=== PATIENT | female | born 1965 | race Caucasian/White ===

== ENCOUNTER 2018-10-12 09:18 | Observation (INO) | payer BC, SELFPAY ==
[2018-10-12] VITALS (15 sets, daily range): BP systolic 94–118; BP diastolic 58–72; PULSE 60–84; RESP 16–18; TEMP 36.6–37.4; O2SAT 93–99; BMI 26.5; BMI 27.3
--- NOTE | 2018-10-12 08:30 | APP_PTH ---
PATIENT: KARI MALLORY LOC: MS3 U#:[id number] AGE/SX: 53/F ROOM: [facility] [place]10[place]12/[address]: Dr. Jose Nelson MD : 1965 BED: 1 DIS: 10/12/2018 SPEC #: [id number] RECD: 10/15/18 09:00 STATUS: CATIA RERuby #: [id number] NAN: 10/12/18 08:[address]: Jose Nelson DEPT: SURGICAL PATHOLOGY RECD BY: Jose Castellanos ENTERED: 10/15/18 11:38 SP TYPE: APPENDIX OTHR DR: Dr. Viviana Pitts MD Tissues: Appendix, NOS Procedures: Surgery Specimen Level III HEADER OPERATION: Laparoscopic appendectomy PRE-OP DIAGNOSIS: Appendicitis TISSUE SUBMITTED: Appendix MICROSCOPIC DIAGNOSIS Appendix, appendectomy: Acute appendicitis and acute serositis. AM:crystal 10/16/18 COMMENT Case has been reviewed in consultation with Dr. Perea who concurs with the above diagnosis. IDC:CE MICROSCOPIC DESCRIPTION Slides are reviewed. GROSS DESCRIPTION Received is one container labeled with the patient's name and designated appendix. The specimen consists of a vermiform appendix measuring 5 cm in length and up to 1 cm in average diameter. The serosal surface contains fibrinous coyle-yellow material. Serial sections reveal a patent lumen. Construction Flagger sections are submitted in one cassette. / AM:crystal 10/15/18 TC:2 CPT: 10806
--- NOTE | 2018-10-12 09:28 | CT_ITS ---
STUDY: CT ABDOMEN AND PELVIS WITHOUT CONTRAST REASON FOR EXAM: Female, 53 years old. Right-sided abdominal pain. RADIATION DOSAGE (If Supplied By Facility): CTDIvol = ( 6.36 ) mGy, DLP = ( 336.80 ) mGycm TECHNIQUE: Transaxial images were obtained from the dome of the diaphragm to the symphysis pubis without oral contrast, and without intravenous contrast. Sagittal and coronal images were reconstructed. Individualized dose optimization techniques were used for this CT. COMPARISON: None. FINDINGS: The visualized lung bases are unremarkable. The visualized portions of the heart are within normal limits. Normal liver. Normal gallbladder and extrahepatic biliary system. Normal spleen. Normal pancreas. Normal bilateral adrenal glands. Normal right kidney. Normal left kidney. Normal visualized stomach. There is no evidence for dilated bowel, ascites or pneumoperitoneum. The small bowel has a normal appearance. Normal colon. There is a tubular, thick-walled appendix (>7mm), consistent with acute appendicitis. There is acute inflammation right lower quadrant consistent with acute appendicitis. Appendicoliths are visualized. Normal abdominal aorta. Normal inferior vena cava. Normal retroperitoneum. Normal urinary bladder. Normal visualized uterus. Normal abdominal wall. Normal osseous structures. CT/Abdomen/Pelvis without Cont IMPRESSION: CT findings are consistent with acute appendicitis. There is no evidence for abscess. N.B. : The above information has been verbally conveyed by Nicole Donald MD to Carlos Duran MD, on 10/12/2018 10:59:19 (ET). Electronically Signed: Nicole Donald MD at 11:02 EST , Service support ,
--- NOTE | 2018-10-12 09:29 | ED.VISSUMM ---
- ER Visit Summary Date of Service: 10/12/18 Chief Complaint: Abdominal pain History of Present Illness: The patient is a 53 F who has had abdominal pain since yesterday. It sharp in the right lower quadrant. It does not radiate. No nausea, vomiting or diarrhea. Movement makes it worse. She does admit some constipation. She has had some urinary frequency. No dysuria or hematuria. She tried aspirin at home without any relief. No history of abdominal surgeries in the past. Physical Examination: Vital signs reviewed. HEENT exam unremarkable. Heart is regular rate and rhythm without murmurs. Lungs are clear to auscultation. Abdomen is soft with tenderness in the right lower quadrant. No guarding or rebound tenderness. Extremities reveal no edema. Skin exam normal. Neurologic exam normal. Test Results: White blood cell count 16.3. Urinalysis negative for infection. CAT scan reveals acute appendicitis Emergency Department Course and Treatment: Patient was discussed with Dr. Schultz. Patient received Zosyn. Disposition will be to the operating room Treatment Plan: [] Disposition: To operating room for surgery Impression: Acute appendicitis This note was generated with [employer] dictation software. It may contain incorrect words, spelling, and punctuation that were not noted in review of the chart prior to signing ED Disposition - Plan for ED Patient: Chief Complaint: Abd Pain
[2018-10-12] MEDS: Ondansetron 4 MG/2 ML Vial IV (09:47)
[2018-10-12] MEDS: Morphine 4 MG/ML Syringe IV ×2 (09:49→12:19)
[2018-10-12 10:05] LABS: Color, Urine Yellow (Yellow); Glucose, Dipstick Normal (Normal); Ketone-Dipstick Negative (Negative); Leukocyte Esterase-Dipstick 25 /ul (Negative); Nitrite-Dipstick Negative (Negative); Occult Blood-Urine 150 /ul (Negative); Protein-Dipstick 15 mg/dl (Negative); Specific Gravity, Urine 1.015 (1.002-1.030); Urine Bilirubin Dipstick Negative (Negative); Urine Clarity Sl. Cloudy (Clear); Urine Urobilinogen 1 mg/dl (Normal)
[2018-10-12 10:07] LABS: Absolute Lymphocyte Count 1.55 X10^3/ul (0.83-4.51); Basophil# 0.02 X10^3/uL; Basophil% 0.1 % (0-1); Eosinophil# 0.04 X10^3/uL; Eosinophils% 0.2 % (0-5); Hematocrit 39.4 % (37-47); Hemoglobin 13.3 g/dl (12.0-15.0); Lymphocyte # 1.55 X10^3/ul (4.0); Lymphocyte % 9.5 % (19-41); Mean Corp Hgb Conc 33.8 g/gl (32-36); Mean Corpuscular Hgb 29.5 pg (27.0-32.0); Mean Corpuscular Volume 87.4 fL (81-99); Monocyte# 0.64 X10^3/uL; Monocyte% 3.9 % (0-10); Neutrophil # 14.02 X10^3/uL (2.7-7.7); Neutrophil % 86.1 % (47-70); POSITIVE COUNT NO; POSITIVE DIFFERENTIAL NO; POSITIVE MORPHOLOGY NO; Platelet Count 330 K/mm3 (150-450); RBC Distribution Width CV 13.3 % (11.6-14.6); RBC Distribution Width SD 42.7 fl (35.1-43.9); Red Blood Count 4.51 M/mm3 (4.2-5.4); White Blood Count 16.3 K/mm3 (4.4-11.0)
[2018-10-12 10:15] LABS: Bacteria 1+ /hpf (None Seen); Mucous, Urine 2+ /hpf (<or=2+); Red Blood Cells-Urine 5-10 SEEN /hpf (0-5); Squamous Epithelial Cells - UA 0-5 SEEN /hpf (5-10); White Blood Cells 0-5 SEEN /hpf (0-5)
[2018-10-12 10:18] LABS: Anion Gap 10 (5-15); BUN 10 mg/dL (7-18); BUN/Creat Ratio 10.4 RATIO (10-20); Calcium,Total 8.8 mg/dL (8.5-10.1); Chloride 106 mmol/L (98-107); Creatinine, Serum 0.96 mg/dL (0.55-1.02); EST Glomerular Filtration Rate 64 mL/min (>60); Est Glom Filt Rate - Afr Amer 78 mL/min (>60); Estimated Creatinine Clearance 55.42 ml/min; Glucose 121 mg/dL (74-106); Potassium 3.4 mmol/L (3.5-5.1); Sodium Level 140 mmol/L (136-145)
--- NOTE | 2018-10-12 11:35 | NURSING ---
Addendum entered by Mahogany Martinez 10/12/18 11:35: FULL ADMIT , NOT OBS Original Note: MED SURG SAMANTHA OBS APPENDICITIS
[2018-10-12] MEDS: Piperacil/Tazobactam 3.375 GM/50 ML ML IV ×3 (12:02→22:08)
--- NOTE | 2018-10-12 12:09 | HP.PCM_ITS ---
History of Present Illness Date of Admission: 10/12/18 Chief Complaint: RLQ pain The patient is a 53 year old F with a complaint of RLQ pain for 24 hours. She noted fever, chills, nausea and vomiting. She presented to the ER. WBC 16K, CT abd and pelvis demonstrated: here is a tubular, thick-walled appendix (>7mm), consistent with acute appendicitis. There is acute inflammation right lower quadrant consistent with acute appendicitis. Appendicoliths are visualized. Past Medical History Allergies No Known Allergies Allergy (Verified 10/12/18 09:21) Home Medications: Ambulatory Orders Medication Instructions Recorded NK 10/12/18 Surgical History: - - uterine ablation Smoking Status: Current some day smoker Alcohol: Rare Drugs: None Review of Systems Constitutional: Reports: Anorexia, Chills, Fever. Denies: Weight Change HEENT: Denies: Head Aches, Sinus Congestion, Sinus Drainage Cardiovascular: Denies: Chest Pain, Palpitations Respiratory: Denies: Cough, Shortness of breath at rest, Sputum production Gastrointestinal: Reports: Abdominal Pain. Denies: Nausea, Vomiting Genitourinary: Denies: Dysuria Musculoskeletal: Denies: Joint Pain, Joint Tenderness Skin: Denies: Rash, Wounds Neurological: Denies: Numbness, Tingling, Focal weakness Psychiatric: Denies: Anxiety, Depression, Homicidal Ideations, Suicidal Ideations Hematologic/ Lymphatic: Denies: Easy Bruising, Easy Bleeding VTE Information - Inpt Only VTE Present on Admission: No VTE Mechan Device Prophylaxis: SCD's - Physical Exam General: Alert, Oriented x3, Cooperative Lungs: Clear to auscultation, Normal air movement Cardiovascular: Regular rate, No murmurs Abdomen: Bowel Sounds Present, Soft, Tender - RLQ Vital Signs Temp Pulse Resp BP Pulse Ox 98.0 F 60 18 99/69 95 10/12/18 12:00 10/12/18 11:58 10/12/18 11:58 10/12/18 11:58 10/12/18 11:58 Oxygen Delivery Method Room Air Weight: 68.039 kg Body Mass Index (BMI) 26.5 Laboratory Tests Past 24 Hrs 10/12/18 10/12/18 10/12/18 09:50 09:50 09:55 WBC 16.3 H RBC 4.51 Hgb 13.3 Hct 39.4 MCV 87.4 MCH 29.5 MCHC 33.8 RDW 13.3 RDW Differential 42.7 Plt Count 330 MPV 10.0 Immature Gran % (Auto) 0.200 Neut % (Auto) 86.1 H Lymph % (Auto) 9.5 L Winkler % (Auto) 3.9 Eos % (Auto) 0.2 Baso % (Auto) 0.1 Absolute Neuts (auto) 14.0 H Absolute Lymphs (auto) 1.55 Total Counted Not Reportable Sodium 140 Potassium 3.4 L Chloride 106 Carbon Dioxide 24.0 Anion Gap 10 BUN 10 Creatinine 0.96 Estim Creat Clear Calc 55.42 Est GFR (MDRD) Af Amer 78 Est GFR (MDRD) Non-Af 64 BUN/Creatinine Ratio 10.4 Glucose 121 H Calcium 8.8 Urine Color Yellow Urine Clarity Sl. Cloudy Urine pH 6.0 Ur Specific [place] 1.015 Urine Protein 15 H Urine Glucose (UA) Normal Urine Ketones Negative Urine Occult Blood 150 H Urine Nitrite Negative Urine Bilirubin Negative Urine Urobilinogen 1 H Ur Leukocyte Esterase 25 H Urine RBC 5-10 SEEN Urine WBC 0-5 SEEN Ur Squamous Epith Cells 0-5 SEEN Urine Bacteria 1+ Urine Mucus 2+ Assessment/Plan Appendicitis I plan to perform a laparoscopic appendectomy. The patient understands the risks, benefits, possible alternatives and complications and consents to the planned procedure. SHe will receive Zosyn and SCDs. She did drink liquid recently. Surgery is not an emergency. We will wait 3-4 hours.
[2018-10-12] MEDS: Lactated Ringers 1,000 ML 100 ML IV (12:19)
--- NOTE | 2018-10-12 16:26 | NURSING ---
pt left for surgery
[2018-10-12] MEDS: Bupivacaine Mpf 0.5% 30 ML VIAL (19:15)
--- NOTE | 2018-10-12 19:20 | PCM.OPRPT ---
Report of Operation Date of Procedure: 10/12/18 Pre-Operative Diagnosis: acute appendicitis Post-Operative Diagnosis: acute appendicitis Surgery/Procedure Performed:: laparoscopic appendectomy script supervisor: None Type of Anesthesia:: General Anesthesiologist: Fernie Kearns - ASA2 Specimen's removed: appendix Drains: none Estimated Blood Loss (mL): 10 Fluids Replaced: 200 Description of Procedure: The patient was brought to the operating suite. Sign in was performed verifying patient, site, procedure, position, and DVT prophylaxis with SCDs. Patient received 3.375 g Zosyn for presumed appendicitis. Following induction of general anesthetic. The patient?s abdomen was prepped and draped in the usual fashion. Timeout was performed verifying patient, site, position. Local anesthetic was injected below the umbilicus. Incision made and dissection carried down to the umbilical root fascia. 2 stay sutures were placed. Incision made in the fascia, the peritoneum entered under direct visualization. A 10 mm Obrien trocar was inserted and secured with the stay sutures. Pneumoperitoneum to 15 mmHg was insufflated. 2 5mm ports were placed in the standard position. Visual inspection revealed omentum adherent to a significantly inflamed but not yet perforated appendix. A window was made between the base the mesoappendix and the base of the appendix transected with the intestinal load Endo MEIR stapler at the base of the cecum. The mesoappendix was transected with a harmonic scalpel. The appendix was placed in an Endobag and removed through the umbilical port site. An 0 PDS [id number] suture was placed around the umbilical port site defect. Pneumoperitoneum was reestablished. The appendiceal area was checked for hemostasis. 5mm ports were removed under direct visualization with no signs of bleeding. Pneumoperitoneum was released. The Obrien trocar was removed. The umbilical fascial suture was secured area did skin was closed with interrupted 4-0 Monocryl subcuticular sutures. Steri-Strips and bandages were applied. The patient was brought to recovery room in stable condition. - Admit VTE Documentation VTE Present on Admission: No VTE Mechan Device Prophylaxis: SCD's
--- NOTE | 2018-10-12 20:11 | DCINST_ITS ---
Discharge Diet: Light diet - advance as tolerated Discharge Activity: May Not Drive - for 3-5 days or while taking narcotic pain meds. May shower in (days): 1 Suture Line Care: Avoid Pulling/Pushing, Avoid Pinching/Bending Additional Dressing/Incision Instructions:: Keep dressing clean and dry. Change or remove dressing in 2 days. Leave steri strips for 1 week. May protect with a gauze bandaid. Medications to take at Discharge Oxycodone HCl/Acetaminophen [Percocet 5/325] 1 tab PO Q4H PRN PRN 7 Days #14 tab 10/12/18 Allergies/Adverse Reactions: Allergies No Known Allergies Allergy (Verified 10/12/18 09:21) The following prescriptions were given: Oxycodone HCl/Acetaminophen [Percocet 5/325] 1 tab PO Q4H PRN PRN 7 Days #14 tab PRN Reason: Pain Primary Care Physician: Viviana Pitts MD [Primary Care Provider] - Test Results: Test results from this visit will be discussed in further detail at your follow- up appointment, if applicable. Please Follow Up With: Jose Nelson MD - [phone] When: Call to make a follow up appointment in 1 week.
== END 2018-10-12 23:59 | disposition home or self-care (01) ==
LOC: ED 11:54 → MS3 12:24
PROVIDERS: Admitting Provider Surgery; Emergency Provider Emergency Medicine; Family Provider Internal Medicine; PCP Internal Medicine; Visit Provider Surgery
PROC: 0DTJ4ZZ Resection of Appendix, Percutaneous Endoscopic Approach (ICD-10-PCS; CPT 44970; principal; 2018-10-12 08:10)
DX: R10.9 Unspecified abdominal pain (principal); K35.80 Unspecified acute appendicitis; F17.200 Nicotine dependence, unspecified, uncomplicated
CPT/HCPCS: 44970; 74176; 80048; 81001; 85025; 88304; 96365; 96366; 96375; 96376; 99218; 99282; J7030; J7120; A4216; G0378; J2405

== ENCOUNTER 2021-10-28 13:41 | Outpatient (CLI) | payer OTHER, SELFPAY ==
--- NOTE | 2021-10-28 13:46 | RAD_ITS ---
STUDY: BARIUM ENEMA. REASON FOR EXAM: Female, 56 years old. COLON CANCER SCREENING FLUOROSCOPY TIME (if supplied): ( 65 seconds ) minutes/seconds. 17 images were obtained. TECHNIQUE: A chaser helper film was obtained. Following this, barium was introduced retrograde through the colon. The entire colon was opacified. COMPARISON: None. FINDINGS: On the chaser helper film, gas is seen throughout the colon. Barium was introduced retrograde through the rectum. The entire colon was opacified. There is a redundant sigmoid colon. No evidence of obstruction. No mass lesion is seen. RAD/Barium Enema No Air Cont IMPRESSION: Unremarkable barium enema. Redundancy of the sigmoid colon. Electronically Signed: Hermes Bacon MD at 15:18 EST , Service support ,
== END 2021-10-28 23:59 | disposition short-term general hospital (02) ==
LOC: RAD 13:43
PROVIDERS: PCP Internal Medicine; Visit Provider Surgery
DX: Z12.11 Encounter for screening for malignant neoplasm of colon (principal)
CPT/HCPCS: 74270